=== PATIENT | male | born 1975 | race Caucasian/White ===

== ENCOUNTER 2019-04-01 15:38 | Outpatient (CLI) | payer MEDICAID, SELFPAY ==
[2019-04-01 19:32] LABS: HCT 44.5 % (40.0-50.0); HGB 15.6 g/dL (13.5-17.5); Mean Corp. HGB Concentration 35.1 g/dL (32.0-36.0); Mean Corpuscular Hemoglobin 29.2 pg (27.0-33.0); Mean Corpuscular Volume 83.2 fL (80-95); Mean Platelet Volume 9.6 fL (8.0-11.0); Platelet Count 296 x1000/uL (130-400); RBC 5.35 m/cumm (4.50-6.00); White Blood Cell Count 7.11 k/cumm (4.4-10.8)
[2019-04-01 19:43] LABS: ALT 31 U/L (16-63); AST 20 U/L (15-37); Albumin 4.3 g/dL (3.4-5.0); Alkaline Phosphatase 62 U/L (46-116); Anion Gap 9.2 mmol/L (3-11); BUN 13 mg/dL (7-18); Bilirubin, Total 0.8 mg/dL (0.2-1.0); CO2 28.8 mmol/L (21.0-32.0); CREATININE 1.19 mg/dL (0.70-1.30); Calcium 8.9 mg/dL (8.5-10.1); Chloride 104 mmol/L (98-107); Glucose 88 mg/dL (74-106); Sodium 142 mmol/L (136-145); Total Protein 7.3 g/dL (6.4-8.2)
== END 2019-04-01 15:58 ==
PROVIDERS: PCP Family Medicine; Visit Provider Family Medicine
DX: F10.10 Alcohol abuse, uncomplicated (principal); I10 Essential (primary) hypertension
CPT/HCPCS: 80053; 85027

== ENCOUNTER 2019-05-12 14:13 | Emergency (ER) | payer MEDICAID, SELFPAY ==
--- NOTE | 2019-05-12 | DI.CT_ITS ---
EXAM: CT LOWER EXTREMITY RT WO TECHNIQUE: Imaging Protocol: Axial computed tomography images with coronal and sagittal reformatted images were created and reviewed COMPARISON: XR ANKLE RT COMPLETE from 05/12/2019 FINDINGS: There is a comminuted fracture of the distal fibula. There is mild lateral displacement of the dista l fracture. There is a comminuted fracture of the distal tibia in the paracoronal plane. The fracture involves t he posterior malleolus, which is posteriorly displaced. The fracture extends medially to involve the medial malleolus. Fracture extends into the ankle joint. There is mild posterior dislocation of th e talus relative to the tibia. There is a joint effusion. There is edema seen in the soft tissue surrounding the ankle and hindfoot. IMPRESSION: Fractures involving the distal tibia and fibula as described. There is a mildly dislocated trimalleo lar fracture of the right ankle. DATA REPOSITORY: All CT scans at this facility are submitted to the National Radiology Data Registry (NRDR) Dose Index Registry (DIR) with the [employer] (A[employer]). RADIATION OPTIMIZATION: All CT scans at this facility use at least one of these dose optimization te chniques: automated exposure control; mA and/or kV adjustment per patient size (includes targeted exa ms where dose is matched to clinical indication); or iterative reconstruction.
[2019-05-12 14:26] VITALS: PULSE 58; TEMP 36.4; O2SAT 100
--- NOTE | 2019-05-12 14:29 | ED.GENADUL_ITS ---
Discharge Plan Disposition Patient Disposition: HOME Condition: Good Discharge Details Chief Complaint: Orthopedic Clinical Impression: Ankle fracture, right Primary Care Provider: Wellington Cuellar ED Provider: Pieter Merrill Home Meds and New Rx's Prescriptions: No Action Fluticasone/Salmeterol [Advair 100-50 Diskus] 1 EACH Blst.W.Dev 1 puff IN PRN PRNRF: 0 albuterol sulfate 2.5 MG/3 ML solution for nebulization 1 puff IN PRN PRNRF: 0 lisinopril 10 mg Tablet 10 mg PO DAILY RF: 0 Discharge Instructions Instructions: Ankle Fracture (ED) Additional Instructions: At this time your ankle is notably fractured. Please follow-up in the clinic with Dr. Markham or Dr. Osorio. We will place a referral for you. Please keep your foot and ankle elevated as much as possible to help the swelling. Please take 800 mg of ibuprofen every 8 hours and 1000 mg of Tylenol every 6 hours to help with the pain. Use ice as often as possible. If you notice any worsening of your symptoms, or any new symptoms such as change in color for your toes, decreased sensation, worsening pain, please loosen your splint and return immediately. If you notice any vomiting, diarrhea, fever, chills, shortness of breath, chest pain, numbness, weakness, or fainting , please return immediately to the emergency department for reevaluation. Please follow up with your primary care provider as soon as possible for reassessment and reevaluation. As always, it was a pleasure participating in your medical care today. Referrals: Alex Aguilar MD [ [facility] STAFF PHYSICIAN] - Jus Osorio MD [ [facility] STAFF PHYSICIAN] - Discharge Data Discharge Date/Time-TO BE ENTERED AT DEPARTURE: 05/12/19 16:31 Medical Decision Making 43-year-old male with no significant past medical history presents for right ankle pain. Roughly 30 minutes prior to arrival the patient was walking, slipped on the grass, and rolled his ankle. He has notable pain has not been able to bear weight since then. Pain is both medial and lateral, he denies any numbness or tingling. He denies any pain in the knee or liriano. No other complaints at this time. He has not taken any medications for this. Aside for the pain being worse with movement ambulation or bearing weight he denies any other aggravating or relieving factors. Physical exam demonstrates notable swelling over the distal medial and lateral malleoli, reduction flexion and exte nsion secondary to pain. Sensation and vascular evaluation is intact with no abnormalities. Suspect mild fracture. Will get x-ray for further assessment. Will give ice, Tylenol and Motrin at this stage. 4:20 PM X-ray reveals evidence of notable fracture of the distal tib/fib, suspicious for partially dislocated trimalar fracture of the right ankle. Did contact orthopedics and discussed the case with Dr. Osorio, who does recommend posterior splinting and then subsequent surgery. Hematoma block was placed into the patient's right ankle, mild analgesia was achieved. With the help with Dr. Osorio, the patient was mildly reduced, and a posterior splint was placed by myself. Patient tolerated this well. CT scan was ordered by Dr. Osorio, does recommend close follow-up with Dr. Markham secondary to his current schedule being totally plugged. Reassessment at time of discharge demonstrated good capillary refill, good sensation throughout, pain well controlled. Patient would like to hold off on any narcotics for home use. Will recommend continue Tylenol Motrin, nonweightbearing and close follow-up. Discussed red flags which return. I have extensively reviewed the treatment plan and discharge instructions with the patient and their family. I have addressed all patient concerns at this time. The patient and family was made aware of what symptoms to monitor for that would warrant a return to the emergency department. Discussed the plan with the patient and family, they demonstrate verbal understanding and agreement with our assessment and plan at this time. FINDINGS: There is a comminuted fracture of the distal fibula. There is mild lateral displacement of the distal fracture. There is a comminuted fracture of the distal tibia in the paracoronal plane. Th e fracture involves the posterior malleolus, which is posteriorly displaced. The fracture extends medially to involve the medial malleolus. Fracture extends into the ankle joint. There is mild posterior dislocation of the talus relative to the tibia. There is a joint effusion. There is edema seen in the soft tissue surrounding the ankle and hindfoot. IMPRESSION: Fractures involving the distal tibia and fibula as described. There is a mildly dislocated trimalleolar fracture of the right ankle. HPI General Date/Time Provider Initiated Documentation: 05/12/19 14:14 . HPI Narrative: 43-year-old male with no significant past medical history presents for right ankle pain. Roughly 30 minutes prior to arrival the patient was walking, slipped on the grass, and rolled his ankle. He has notable pain has not been able to bear weight since then. Pain is both medial and lateral, he denies any numbness or tingling. He denies any pain in the knee or liriano. No other complaints at this time. He has not taken any medications for this. Aside for the pain being worse with movement ambulation or bearing weight he denies any other aggravating or relieving factors. Related Data Home Medications Medication Instructions Recorded Confirmed Fluticasone/Salmeterol [Advair 1 puff IN PRN PRN 08/22/17 05/12/19 100-50 Diskus] albuterol sulfate 1 puff IN PRN PRN 08/22/17 05/12/19 lisinopril 10 mg PO DAILY 05/12/19 05/12/19 Allergies Allergy/AdvReac Type Severity Reaction Status Date / Time amoxicillin Allergy Unverified 05/12/19 14:31 General Stated Complaint: Orthopedic NILDA: 3 Review of Systems All systems reviewed & are unremarkable except as noted in HPI and below PFSH Social History Smoking/Tobacco Use Status: Never Alcohol Intake: current Alcohol Intake frequency: 0-2 drinks per day Alcohol type: beer Drug use: Never Substance use type: does not use Do you feel safe at home: Yes Do you feel safe in your relationship?: Yes Exam Narrative Exam Narrative: 1.Const: Well-nourished, Well-developed, appearing stated age 2.Eyes: PERRL, no conjunctival injection, and symmetrical lids. 3.ENT: Atraumatic external nose and ears. Moist MM. Neck: Symmetric, trachea midline, No thyromegaly. 4.CVS: +S1/S2, No murmurs or gallops. Peripheral pulses 2+ and equal in all extremities. Brisk capillary refill in all extremities. 5.RESP: Unlabored respiratory effort. Clear to auscultation bilaterally. No wheezes rales or rhonchi 6.GI: Soft, Nontender/Nondistended, No hepatosplenomegaly. No guarding or rebound. 7.MSK: Normocephalic, exam demonstrates slight what appears to be lateral rotation of the right ankle, mild swelling at the distal malleoli for both medial and lateral. Reproducible plated tenderness in this area. He is able to slightly flex and extend but notable pain limits him. No pain over the dorsum or plantar aspect of the foot otherwise. No pain in the mid shaft tib/fib. No knee pain whatsoever. Capillary refill is brisk, sensation intact throughout, dorsalis pedis and posterior tibial pulse +2 bilaterally. 8.Skin: Warm, Dry. No rashes or lesions. 9.Neuro: pediatric orthodontist II-XII grossly intact. Sensation grossly intact, no focal neurologic deficits. 10.Psych: (AAO) x3. Appropriate mood and affect Course Vital Signs Vital signs: Vital Signs Temperature 36.4 C L 05/12/19 14:26 Pulse 58 L 05/12/19 14:26 Pulse Oximetry 100 05/12/19 14:26 Temperature 36.4 C L 05/12/19 14:26 Temperature Source Temporal Artery Scan 05/12/19 14:26 Pulse 58 L 05/12/19 14:26 Blood Pressure Position Sitting 05/12/19 14:26 Pulse Oximetry 100 05/12/19 14:26 Oxygen Delivery Method Room Air 05/12/19 14:26 Oxygen Flow Rate 0 05/12/19 14:26 Pain Level 3 05/12/19 14:26
[2019-05-12] MEDS: Acetaminophen 500 MG TAB 1000 MG PO (14:32)
[2019-05-12] MEDS: Ibuprofen 800 MG TAB PO (14:33)
--- NOTE | 2019-05-12 14:48 | DI.RAD_ITS ---
EXAM: XR ANKLE RT COMPLETE CLINICAL HISTORY: TRAUMA, LATERALLY ROTATED, MED/LAT MAL PAIN. TECHNIQUE: 2D digital imaging was performed. COMPARISON: No exams were available for comparison FINDINGS: BONES: There is a comminuted fracture of the distal right fibula. The distal fracture is mildly disp laced laterally and posteriorly. There is a moderately displaced posterior malleolar fracture. Ther e also appears to be a fracture involving the medial aspect of the distal tibial metaphysis, possibly involving the medial malleolus. JOINTS: The talus is posteriorly dislocated relative to the distal tibia. SOFT TISSUE: Soft tissue swelling. IMPRESSION: Right ankle fracture dislocation as described above. The findings were discussed with the Emergency Department on the date of the examination. DATA REPOSITORY: RADIATION DOSE DELIVERED:
[2019-05-12 15:59] VITALS: BP 134/72; PULSE 85; RESP 15; TEMP 37.1; O2SAT 97
[2019-05-12 16:31] VITALS: BP 134/72; PULSE 85; RESP 15; TEMP 37.1; O2SAT 97
--- NOTE | 2019-05-12 17:05 | W.ORTHOCONSU ---
Date of service: 05/12/19 Time of Service: 16:05 History of Present Illness History of Present Illness Chief Complaint: Right ankle injury Narrative: Crystal is a 43-year-old otherwise healthy male who was walking on some grass today and slipped. He had a rotational injury to the right ankle and immediately felt something pop. He was unable to ambulate. He was able to get to a truck and was driven to the emergency department. He was diagnosed with a ankle fracture dislocation with notable comminution. I was consulted. He denies numbness or tingling. He does have pain about the ankle. No pain in the knee or hip. No head trauma or loss of consciousness. No break in the skin, abrasion, laceration per his report. No previous injury to this right side and no premorbid ankle pain. He denies any bone metabolic disorders. He denies diabetes, thyroid disease, or other endocrine abnormality. Consults Consult date: 05/12/19 Requesting physician: Pieter Merrill Consult Reason Right ankle fracture dislocation Assessment and Plan Assessment and plan (1) Ankle fracture, right: Status: Acute Assessment and plan: Crystal is a 43-year-old otherwise healthy male who slipped today and suffered a rotational injury to his right foot resulting in a comminuted, trimalleolar ankle fracture dislocation. A gentle reduction maneuver was performed during splinting and he was placed into a posterior slab splint. At the time of splinting he had no skin defects. However, he did have notable swelling. I discussed this with Crystal and his partner. I was very honest with both that this will take some time to recover from. It is not a simple fracture pattern and will be technically challenging and will take some time. Therefore, I would not do this tonight but rather wait to schedule this within the light of day with time to plan appropriately. The x-rays were reviewed with both. I discussed the case with Dr. Aguilar who will likely take over the care of this injury and the patient agrees with this as well. Qualifiers: Encounter type: initial encounter Fracture type: closed Qualified Code(s): S82.891A - Other fracture of right lower leg, initial encounter for closed fracture Review of Systems All systems reviewed & are unremarkable except as noted in HPI and below PFSH Medical History Asthma (Chronic) Hypertension (Chronic) Social History Smoking/Tobacco Use Status: Never Alcohol Intake: current Alcohol Intake frequency: 0-2 drinks per day Alcohol type: beer Drug use: Never Substance use type: does not use Do you feel safe at home: Yes Do you feel safe in your relationship?: Yes Exam Narrative Exam Narrative: Laying in the supine position with the right leg supported on some pillows. There is notable swelling about the right leg. The skin is wrinklable. Sensation intact light touch over the deep and superficial peroneal nerve and tibial nerve. Palpable DP pulse. Notable pain with palpation. No pain about the knee. Intact great toe extension and flexion. Results Last Vital Signs Temp 37.1 C 05/12/19 16:31 Pulse 85 05/12/19 16:31 Resp 15 05/12/19 16:31 BP 134/72 05/12/19 16:31 Pulse Ox 97 05/12/19 16:31 Imaging Imaging Studies: X-ray of the right ankle shows a comminuted trimalleolar ankle fracture with subluxation posteriorly of the talus. The posterior malleolar fragment appears to be quite large and there is notable comminution seen of the distal fibula with a vertical orientation of the medial either fragment. CT scan of the right ankle demonstrates notable comminution. The medial malleolar fragment is associate with some marginal impaction of the joint surface. The posterior malleolar component encompasses the entire posterior rim of the distal tibia, involving 20 or so percent with some marginal impaction. The distal fibula is comminuted with interposition of some of his fragments between the posterior malleolar fracture fragments and posteriorly subluxed out of the incisura. The fibular fracture extends proximally into the diaphysis of the fibula.
== END 2019-05-12 16:31 | disposition home or self-care (01) ==
PROVIDERS: Emergency Provider Student in an Organized Health Care Education/Training Program; PCP Family Medicine
DX: S82.851A Displaced trimalleolar fracture of right lower leg, initial encounter for closed fracture (principal); W01.0XXA Fall on same level from slipping, tripping and stumbling without subsequent striking against object, initial encounter; X50.9XXA Other and unspecified overexertion or strenuous movements or postures, initial encounter; I10 Essential (primary) hypertension
CPT/HCPCS: 29515; 99253; 73610; 73700

== ENCOUNTER 2019-05-14 06:37 | Day surgery (SDC) | payer MEDICAID, SELFPAY ==
[2019-05-14] VITALS (8 sets, daily range): BP systolic 134–158; BP diastolic 84–98; PULSE 63–80; RESP 16–25; TEMP 36.4–36.6; O2SAT 94–99
[2019-05-14] MEDS: Lactated Ringers 1,000 ML 100 ML IV (07:06)
--- NOTE | 2019-05-14 08:08 | DI.RAD_ITS ---
EXAM: XR FLOURO OR C-ARM <1 HR INDICATION: Closed right trimalleolar fracture. COMPARISON: XR ANKLE RT COMPLETE from 05/12/2019 TECHNIQUE: C-arm fluoroscopy and 2D digital imaging was performed. FINDINGS: Fluoroscopy was provided in the OR. Hard copy images show improvement in the alignment of the trima lleolar fracture and placement of a cast. Please see procedure note for details. DATA REPOSITORY: RADIATION DOSE DELIVERED:
--- NOTE | 2019-05-14 08:29 | PDOC.DSDIS_ITS ---
Discharge Plan Disposition Patient Disposition: HOME Condition: Stable Discharge Details Reason For Visit: CLOSED REDUCTION Attending Provider: Alex Aguilar Primary Care Provider: Wellington Cuellar Home Meds and New Rx's Prescriptions: New oxycodone 5 mg tablet 5 - 10 mg PO Q4H PRN (Reason: moderate to severe pain) Qty: 5 RF: 0 Continued nicotine (polacrilex) [Nicorette] 4 mg gum 4 mg BC Q2H RF: 0 hydrocodone-acetaminophen 5-325 mg Tablet 1 tab PO DIRECTED RF: 0 ibuprofen 800 mg Tablet 800 mg PO Q8H PRNRF: 0 acetaminophen [Acetaminophen Extra Strength] 500 mg Tablet 1,000 mg PO Q6H PRNRF: 0 ibuprofen [Advil] 200 MG tablet 800 mg PO BID Qty: 90 RF: 0 fluticasone propion-salmeterol [Advair Diskus] 250-50 mcg/dose Blister With Device 1 puff IN PRN PRNRF: 0 albuterol sulfate 2.5 MG/3 ML solution for nebulization 1 puff IN PRN PRNRF: 0 lisinopril 10 mg Tablet 10 mg PO DAILY RF: 0 Discharge Instructions Additional Instructions: Surgery: Right ankle dislocation closed reduction Activity: Nonweightbearing in splint at all times. Recommend elevation on pillows at or above the level of the heart to minimize swelling before the next surgery. Important to wiggle toes and bend and straighten knee every day to prevent stiffness. Prescriptions: Ibuprofen 800 mg take 1 every 12 hours with a meal as needed for moderate pain. Stop 5 days before next surgery. Oxycodone 5 mg take 1-2 every 4-6 hours as needed for severe pain You may use [id number] Tylenol (acetaminophen) as needed for mild pain. These pain medications may be taken all at once or in different combinations as needed. Also, recommend Colace (docusate) as a stool softener as surgery and pain medicine cause constipation. Dressings: Leave splint and dressing in place until follow-up. Keep clean and dry at all times. Follow-up: Saturday05/22/[address] Aguilar for trimalleolar ankle fracture open reduction internal fixation (ORIF). Please call the office during business hours with any questions or concerns. Let us know right away if you develop any redness, drainage, fevers, chest pain, or trouble breathing. Do not drink alcohol or drive for at least 24 hours after anesthesia. Referrals: Alex Aguilar MD [ [facility] STAFF PHYSICIAN] - Discharge Orders Discharge Orders: Discharge Order (Routine); Ordered 05/14/19 Ordered By: Alex Aguilar DS: Diagnosis Discharge Diagnosis (1) Ankle dislocation: Status: Acute (2) Closed right trimalleolar fracture: Status: Acute
--- NOTE | 2019-05-14 10:39 | ROE_ITS ---
Date of service: 05/14/19 Time of Service: 10:32 Operative Note Operative Note DATE OF PROCEDURE: 05/14/19 PRE-OP DIAGNOSIS: 1. Right ankle dislocation 2. Right displaced trimalleolar ankle fracture POST-OP DIAGNOSIS: same PROCEDURE: 1. Closed reduction right ankle dislocation 2. Short leg splinting right lower extremity SURGEON: Alex Aguilar MEAL MILLER: Wellington Azevedo ANESTHESIA: GETA ESTIMATED BLOOD LOSS: 0 COMPLICATIONS: None Patient was transported to: PACU Patient's condition: stable Indications: Please see complete medical record for details. Procedure Description: The patient was taken to the operating room and transferred to the operating room table. General anesthesia was induced. All bony prominences were well-padded. Preoperative antibiotics were omitted. The correct patient, procedure, and side of the procedure were all verified prior to beginning the procedure. The patient was positioned appropriately for posterior ankle dislocation reduction and splinting with his knee flexed 90 degrees. Gentle manual anterior drawer was placed on the hindfoot, the ankle was positioned in plantarflexion, and a palpable glide was felt as the talus reduced anteriorly. The toes were held and fluoroscopy was brought in which confirmed reduction. A short leg AO plaster style splint was then made and appropriately well molded and padded to ensure proper immobilization and reduction of this ankle fracture dislocation taking care to place the ankle in neutral position as plantarflexion did not seem required to maintain reduction at this time. Three-point mold was held and adjusted as needed using AP and lateral fluoroscopic guidance. Once the plaster splint was hardened final AP and lateral fluoroscopy confirmed excellent reduction. Patient woke from anesthesia complication and was transferred to recovery room in stable fashion. Prior to departing the day surgery unit, he reported signif icant improvement in his ankle pain demonstrated intact motor throughout his toes, and had significant improvement in his superficial peroneal and deep peroneal nerve paresthesias.
== END 2019-05-14 10:40 | disposition home or self-care (01) ==
PROVIDERS: PCP Family Medicine; Visit Provider Student in an Organized Health Care Education/Training Program
PROC: (CPT 27818; principal; 2019-05-14 07:30)
DX: S82.851A Displaced trimalleolar fracture of right lower leg, initial encounter for closed fracture (principal); S93.04XA Dislocation of right ankle joint, initial encounter; W19.XXXA Unspecified fall, initial encounter
CPT/HCPCS: 27818; 76000; 73610; J0131; J1100; J1885; J2001; J2250; J2405

== ENCOUNTER 2019-05-21 11:31 | Day surgery (SDC) | payer MEDICAID, SELFPAY ==
[2019-05-21] VITALS (8 sets, daily range): BP systolic 106–134; BP diastolic 54–92; PULSE 73–100; RESP 16–22; TEMP 36.5–36.7; O2SAT 95–99
[2019-05-21] MEDS: Lactated Ringers 1,000 ML 100 ML IV ×2 (12:16→17:01)
[2019-05-21] MEDS: CLINDAMYCIN 900 MG/50 ML BAG 50 MG IVPB (13:33)
--- NOTE | 2019-05-21 17:54 | DI.RAD_ITS ---
EXAM: XR ANKLE RT 2V CLINICAL HISTORY: right ankle fracture ORIF in OR COMPARISON: No exams were available for comparison FINDINGS: C-arm fluoroscopy was utilized by Dr. Aguilar during open reduction and internal fixation of tibiofibul ar fracture. Hard copies show plate and screw fixation of the distal tibia and fibula with reconstit ution of the ankle mortise. Fluoro time, 104 seconds.
--- NOTE | 2019-05-21 18:24 | W.PM.DSUDISC ---
Discharge Plan Disposition Patient Disposition: HOME Condition: Stable Discharge Details Reason For Visit: Right ankle surgery Attending Provider: Alex Aguilar Primary Care Provider: Wellington Cuellar Home Meds and New Rx's Prescriptions: New aspirin 325 mg tablet,delayed release (DR/EC) 325 mg PO BID 30 Days Qty: 60 RF: 0 oxycodone 5 mg tablet 5 - 10 mg PO Q4H PRN (Reason: moderate to severe pain) Qty: 22 RF: 0 Continued nicotine (polacrilex) [Nicorette] 4 mg gum 4 mg BC Q2H RF: 0 hydrocodone-acetaminophen 5-325 mg Tablet 1 tab PO DIRECTED RF: 0 ibuprofen 800 mg Tablet 800 mg PO Q8H PRNRF: 0 acetaminophen [Acetaminophen Extra Strength] 500 mg Tablet 1,000 mg PO Q6H PRNRF: 0 oxycodone 5 mg tablet 5 - 10 mg PO Q4H PRN (Reason: moderate to severe pain) Qty: 5 RF: 0 ibuprofen [Advil] 200 MG tablet 600 - 800 mg PO BID Qty: 90 RF: 0 fluticasone propion-salmeterol [Advair Diskus] 250-50 mcg/dose Blister With Device 1 puff IN PRN PRNRF: 0 albuterol sulfate 2.5 MG/3 ML solution for nebulization 1 puff IN PRN PRNRF: 0 lisinopril 10 mg Tablet 10 mg PO DAILY RF: 0 Discharge Instructions Additional Instructions: Surgery: Right distal tibia and fibula fracture ORIF Activity: Nonweightbearing in splint at all times. Recommend elevation to minimize swelling and pain. Wiggle toes and bend and straighten knee every day to prevent stiffness and improve circulation. A physical therapy prescription will be provided separately in the office at follow-up if needed.. Prescriptions: Aspirin 325 mg take 1 twice a day to prevent a blood clot for 30 days Ibuprofen 600 to 800 mg take every 12 hours with a meal as needed for moderate pain and swelling Oxycodone 5 mg take 1-2 every 4-6 hours as needed for severe pain You may use [id number] Tylenol (acetaminophen) as needed for mild pain. These pain medications may be taken all at once or in different combinations as needed. Also, recommend Colace (docusate) as a stool softener as surgery and pain medicine cause constipation. Dressings: Leave splint and dressing in place until follow-up. Keep clean and dry at all times. Must cover completely with cast cover if showering. Follow-up: 10-[address] Aguilar Please call the office during business hours with any questions or concerns. Let us know right away if you develop any redness, drainage, fevers, chest pain, or trouble breathing. Do not drink alcohol or drive for at least 24 hours after anesthesia. Stand Alone Forms: Nursing Discharge Form Discharge Orders Discharge Orders: Discharge Order (Routine); Ordered 05/21/19 Ordered By: Alex Aguilar DS: Diagnosis Discharge Diagnosis (1) Closed right pilon fracture: Status: Acute (2) Closed fracture of right distal fibula: Status: Acute
--- NOTE | 2019-05-21 18:48 | W.PM.OP ---
Date of service: 05/21/19 Time of Service: 18:24 Operative Note Operative Note DATE OF PROCEDURE: 05/21/19 PRE-OP DIAGNOSIS: Right trimalleolar displaced ankle fracture Right ankle dislocation POST-OP DIAGNOSIS: other Right pilon intra-articular distal tibia and fibula fractures PROCEDURE: Right pilon ORIF of both distal tibia weightbearing surface and fibula, CPT #14113 Manual stress external rotation radiographs of the ankle to assess syndesmotic stability, CPT #43386 SURGEON: Alex Aguilar SEED TESTER: Wellington Azevedo ANESTHESIA: GETA, regional and local ESTIMATED BLOOD LOSS: 15 TOURNIQUET TIME: 125 COMPLICATIONS: None Patient was transported to: PACU Patient's condition: stable Implants: Synthes 3.5 mm T plate posterior malleolus with 4x appropriately length 3.5 mm cortex screws. 3-hole 2.7 mm plate posterior medial fragment with 3x appropriately length 3.5 mm cortex screws. 8-hole 3.5 mm 1/3 tubular plate fibula with 5x appropriately length 3.5 mm cortex screws and 1x 4.0 mm cancellous screw. 1x 2.7 mm lag screw fibula. Indications: Please see complete medical record for details. Findings: Segmental distal fibula fracture and intra-articular complex posterior malleolus fracture with separate posterior-medial extension, Haraguchi type 2 Together, likely represent hyper-plantarflexion distal tibia and fibula pilon fractures Procedure Description: The patient was taken to the operating room and transferred to the operating room table. Regional and general anesthesia were induced. Patient was positioned prone. All bony prominences were well-padded. Preoperative antibiotics were administered. The right ankle was prepped and draped in the usual sterile fashion. The correct patient, procedure, and side of the procedure were all verified prior to incision. A longitudinal incision was used and blunt and sharp dissection was carried through the posterior lateral approach to the distal tibia down to bone taking care to elevate carefully, retract and protect the FHL sural nerve and posterior neurovascular bundle medially and retract protect the peroneal tendons and musculature and peroneal nerve laterally. The posterior malleolus fracture was reduced with dorsiflexion and provisionally pinned in place from posterior to anterior. Bone clamp was used to reduce and provisionally hold the posterior medial fragment. X-ray was used to confirm provisional reduction of the distal tibia fracture fragments. An appropriately sized in length T plate was slid over the wire and fixated to the distal tibia through the oblong hole. The wire was removed and the plate height was adjusted relative to the articular surface while maintaining reduction. A second screw was placed in the distal tibia metaphysis through the plate to secure rotation. Next, under fluoroscopic guidance a 2.5 mm drill was passed above the distal articular tibial surface and a central position followed by 3.5 mm drill through the portion of the fracture fragment and appropriate length 3.5 mm lag screw was inserted to achieve compression across the intra-articular segments. Lastly the most proximal hole in the T plate was drilled measured and filled with appropriate length 3.5 mm cortex screw. In order to obtain appropriate trajectory for the posterior medial distal tibia fracture fragment a posterior medial window was made between the tibialis posterior retracted anteriorly and the flexor digitorum longus and remainder of the flexor tendons and neurovascular bundle, which was retracted laterally this window was made both from the outside and in the inside out localizing it over the proximal fracture leo and shoulder of the proximal posterior medial fracture fragment. A 3 hole plate was selected, which happened to be from the 2.7 mm set. The 3.5 mm drill was placed through the posterior medial window taking care to place the drill guide down to bone retracting all appropriate tissues and create a drill hole at the axilla and the central hole of the plate was filled in the plate appropriately rotated to provide best antiglide buttress technique. Distal hole was drilled through the posterior medial window in a similar fashion and overdrilled and filled with an appropriate length 3.5 mm lag screw. The most proximal hole was drilled and filled with 3.5 mm cortex screw. Careful inspection of and fluoroscopy confirmed excellent reduction of the distal tibia fracture fragments and articular surface and appropriate hardware placement. The tourniquet was let down and moist laps were held in the wound for a few minutes. Hemostasis was appropriate. 30 cc of 0.25% bupivacaine with epinephrine was infiltrated about both wounds. Attention was then turned to the segmental comminuted distal fibula fracture. The peroneals were retracted more laterally and an elevator was used to expose the distal fibula. Care was taken to preserve the PITFL attachments which were clearly visualized and intact between the fixated posterior malleolus and the distal fibula. Clamps were used to provisionally fixate the distal fibula and length was improved using eccentric drilling through a proximal part of the plate after first placing a 3.5 mm cortex screw distally. The clamps were adjusted and the screws were loosened and tightened again to optimize reduction. Distally, there is very poor bone quality and an additional distalmost 3.5 mm cortex screw was placed and the third most distal screw was switched to a 4.0 mm cancellus after 3.5 mm cortex had minimal purchase. Proximally, 2 additional 3.5 mm cortex screws were drilled measured and placed in a similar posterior to anterior fashion. The fracture had 2 segmental components and it was felt interfragmentary compression could be improved so a 2.7 mm cortex screw was drilled and placed using lag screw technique from posterior medial to anterior lateral. Final AP, mortise, and lateral fluoroscopy confirmed excellent reduction and appropriate hardware placement of the distal fibula. Stress external rotation fluoroscopy confirmed intact ankle syndesmosis and ankle mortise. The wounds were copiously irrigated with normal saline. 1 g of vancomycin powder was distributed deeply and superficially about the wounds. Subcutaneous tissue was closed using 2-0 Monocryl in a buried interrupted fashion. The skin was closed using 3-0 nylon in horizontal mattress fashion. The extremity was cleansed with hydrogen peroxide. Incisions were covered with Xeroform, dry 4 x 4 gauze, ABD, and sterile soft roll. The extremities placed into a short leg plaster splint taking care to maintain the ankle in neutral position. The patient awoke from anesthesia without complication and was transferred to recovery room in stable fashion.
== END 2019-05-21 19:27 | disposition home or self-care (01) ==
LOC: SUR 11:59 → MS 18:59
PROVIDERS: PCP Family Medicine; Visit Provider Student in an Organized Health Care Education/Training Program
PROC: (CPT 27828; principal; 2019-05-21 07:30)
DX: S82.871A Displaced pilon fracture of right tibia, initial encounter for closed fracture (principal); S82.831A Other fracture of upper and lower end of right fibula, initial encounter for closed fracture; S93.04XA Dislocation of right ankle joint, initial encounter; W19.XXXA Unspecified fall, initial encounter; G89.18 Other acute postprocedural pain
CPT/HCPCS: 27828; 77071; C1713; 76000; 76942; 73600; J1100; J2001; J2405; J2704

== ENCOUNTER 2019-06-03 11:24 | Outpatient (CLI) | payer MEDICAID, SELFPAY ==
--- NOTE | 2019-06-03 10:45 | DI.RAD_ITS ---
EXAM: XR ANKLE RT COMPLETE CLINICAL HISTORY: Follow up TECHNIQUE: 2D digital imaging was performed. COMPARISON: XR ANKLE RT COMPLETE from 05/12/2019 XR ANKLE RT 2V from 05/21/2019 FINDINGS: There has been no change in the alignment of distal tibial and fibular hardware. The fractures show continued healing. No new abnormalities are seen.
== END 2019-06-03 11:44 ==
PROVIDERS: PCP Family Medicine; Visit Provider Student in an Organized Health Care Education/Training Program
DX: S82.871D Displaced pilon fracture of right tibia, subsequent encounter for closed fracture with routine healing (principal); S82.831D Other fracture of upper and lower end of right fibula, subsequent encounter for closed fracture with routine healing
CPT/HCPCS: 73610

== ENCOUNTER 2019-07-07 09:47 | Outpatient (CLI) | payer MEDICAID, SELFPAY ==
--- NOTE | 2019-07-07 09:30 | DI.RAD_ITS ---
EXAM: XR ANKLE RT COMPLETE CLINICAL HISTORY: f/u TECHNIQUE: 2D digital imaging was performed. COMPARISON: XR ANKLE RT COMPLETE from 06/03/2019 FINDINGS: There has been no change in the alignment of the hardware in the distal tibia and fibula. 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
== END 2019-07-07 10:07 ==
PROVIDERS: PCP Family Medicine; Visit Provider Orthopaedic Surgery
DX: S82.851D Displaced trimalleolar fracture of right lower leg, subsequent encounter for closed fracture with routine healing (principal)
CPT/HCPCS: 73610

== ENCOUNTER 2019-08-04 09:51 | Outpatient (CLI) | payer MEDICAID, SELFPAY ==
--- NOTE | 2019-08-04 09:45 | DI.RAD_ITS ---
EXAM: XR ANKLE RT COMPLETE CLINICAL HISTORY: fu fracture TECHNIQUE: COMPARISON: CR XR ANKLE RT COMPLETE from 07/07/2019 FINDINGS: Three views were obtained and show plate and screw fixation of tibiofibular fracture, no change in al ignment in comparison with previous examination July 06. Diffuse bony demineralization of the foot a nd ankle again noted. IMPRESSION:
== END 2019-08-04 10:11 ==
PROVIDERS: PCP Family Medicine; Referring Provider Family Medicine; Visit Provider Student in an Organized Health Care Education/Training Program
DX: S82.831D Other fracture of upper and lower end of right fibula, subsequent encounter for closed fracture with routine healing (principal); S82.871D Displaced pilon fracture of right tibia, subsequent encounter for closed fracture with routine healing
CPT/HCPCS: 73610

== ENCOUNTER 2019-12-08 09:51 | Outpatient (CLI) | payer MEDICAID, SELFPAY ==
--- NOTE | 2019-12-08 09:00 | DI.RAD_ITS ---
EXAM: XR ANKLE RT COMPLETE CLINICAL HISTORY: f/u fracture TECHNIQUE: COMPARISON: CR XR ANKLE RT COMPLETE from 08/04/2019 FINDINGS: Three views were obtained. Previously described tibial fibular fixation is again noted in place, the re has been no gross interval change in alignment of the tibiofibular fracture fragments comparison w ith previous examination of August 03. The ankle mortise remains well maintained. IMPRESSION: RADIATION DOSE DELIVERED: Total DLP
== END 2019-12-08 10:11 ==
PROVIDERS: PCP Family Medicine; Referring Provider Family Medicine; Visit Provider Student in an Organized Health Care Education/Training Program
DX: S82.291A Other fracture of shaft of right tibia, initial encounter for closed fracture (principal); S82.491A Other fracture of shaft of right fibula, initial encounter for closed fracture
CPT/HCPCS: 73610

== ENCOUNTER 2020-03-07 14:19 | Outpatient (REF) | payer MEDICAID, SELFPAY ==
[2020-03-08 21:32] LABS: COVID-19 RT-PCR Result NEGATIVE (Negative)
== END 2020-03-07 14:39 ==
LOC: NCHCN 14:19
PROVIDERS: PCP Family Medicine; Visit Provider Nurse Practitioner Family
DX: Z11.59 Encounter for screening for other viral diseases (principal)
CPT/HCPCS: U0003

== ENCOUNTER 2020-04-12 11:07 | Outpatient (CLI) | payer MEDICAID, SELFPAY ==
--- NOTE | 2020-04-12 10:30 | DI.RAD_ITS ---
EXAM: XR ANKLE RT COMPLETE CLINICAL HISTORY: f/u. TECHNIQUE: 2D digital imaging was performed. COMPARISON: CR XR ANKLE RT COMPLETE from 12/08/2019 FINDINGS: BONES: There are stable post operative changes present. No new fracture or dislocation. JOINTS: The joint spaces are well maintained. No joint effusion is present. SOFT TISSUE: Normal. IMPRESSION: Stable postoperative changes. DATA REPOSITORY: RADIATION DOSE DELIVERED:
== END 2020-04-12 11:08 | disposition home or self-care (01) ==
LOC: DIORS 11:07
PROVIDERS: PCP Family Medicine; Visit Provider Student in an Organized Health Care Education/Training Program
DX: S82.871D Displaced pilon fracture of right tibia, subsequent encounter for closed fracture with routine healing (principal); S82.61XD Displaced fracture of lateral malleolus of right fibula, subsequent encounter for closed fracture with routine healing
CPT/HCPCS: 73610

== ENCOUNTER 2021-05-29 16:50 | Outpatient (REF) | payer MEDICAID, SELFPAY ==
[2021-05-29 20:10] LABS: HCT 43.7 % (40.0-50.0); HGB 14.8 g/dL (13.5-17.5); MCHC 33.9 % (32.0-36.0); MCV 85.5 fL (80-95); MPV 10.2 fL (8.0-11.0); Platelet Count 265 10^3/uL (130-400); RBC 5.11 10^6/uL (4.36-5.78); RDW 12.7 % (11.8-14.1); RDW-SD 39.7 fL; WBC 9.22 10^3/uL (4.4-10.8)
[2021-05-29 20:26] LABS: ALT 35 U/L (16-63); AST 18 U/L (15-37); Alkaline Phosphatase 63 U/L (46-116); Anion Gap 8.8 mmol/L (3-11); BUN 10 mg/dL (7-18); Bilirubin, Total 0.6 mg/dL (0.2-1.0); CO2 27.2 mmol/L (21.0-32.0); CREATININE 1.2 mg/dL (0.70-1.30); Calcium 8.5 mg/dL (8.5-10.1); Chloride 106 mmol/L (98-107); Cholesterol 183 mg/dL (<200); Glucose 88 mg/dL (74-106); HDL Cholesterol 45 mg/dL (40-60); Potassium 4.3 mmol/L (3.5-5.1); Sodium 142 mmol/L (136-145); Total Protein 7.1 g/dL (6.4-8.2); Triglyceride 480 mg/dL (<150)
[2021-05-29 20:40] LABS: LDL CHOLESTEROL 91 mg/dL (<100)
== END 2021-05-29 16:51 | disposition home or self-care (01) ==
LOC: NCHCN 16:50
PROVIDERS: PCP Family Medicine; Visit Provider Family Medicine
DX: R06.02 Shortness of breath (principal); I10 Essential (primary) hypertension; F10.10 Alcohol abuse, uncomplicated
CPT/HCPCS: 80053; 80061; 83721; 85027

== ENCOUNTER → 2021-06-15 01:07 | Outpatient (CLI) | payer MEDICAID, SELFPAY ==
--- NOTE | 2021-06-15 10:36 | DI.RAD_ITS ---
Exam(s) XR CHEST 2V PA LATERAL EXAM: XR CHEST 2V PA LATERAL CLINICAL HISTORY: SOB, R06.02; NOT A PUI TECHNIQUE: 2D digital imaging was performed. COMPARISON: CR CHEST 2 VIEWS PA,LAT from 05/02/2016 FINDINGS: The heart is not enlarged. The lungs are clear and well expanded. No pleural effusion seen. Mediastin al contours appear intact. IMPRESSION: Normal chest. RADIATION DOSE DELIVERED: Total DLP
== END ==
PROVIDERS: PCP Family Medicine; Visit Provider Family Medicine
DX: R06.02 Shortness of breath (principal)
CPT/HCPCS: 71046

== ENCOUNTER 2021-06-20 02:27 | Outpatient (CLI) | payer MEDICAID, SELFPAY ==
[2021-06-20] MEDS: Albuterol HFA 18 GM 200 PUFF INH IH (14:16)
[2021-06-20] MEDS: Inhaler, Assist Device 1 EACH MC (14:17)
== END 2021-06-20 02:28 | disposition home or self-care (01) ==
LOC: RT 02:27
PROVIDERS: PCP Family Medicine; Visit Provider Family Medicine
DX: R06.02 Shortness of breath (principal); J45.40 Moderate persistent asthma, uncomplicated; Z86.16 Personal history of COVID-19; Z87.891 Personal history of nicotine dependence
CPT/HCPCS: 94060; 94726; 94729

== ENCOUNTER 2022-05-28 17:38 | Outpatient (REF) | payer MEDICAID, SELFPAY ==
[2022-05-28 18:29] LABS: Anion Gap 12.2 mmol/L (3-11); BUN 10 mg/dL (7-18); CO2 24.8 mmol/L (21.0-32.0); CREATININE 1.1 mg/dL (0.70-1.30); Calcium 8.6 mg/dL (8.5-10.1); Chloride 106 mmol/L (98-107); Estimated GFR 84.37 (mL/min/1.73m2); Glucose 120 mg/dL (74-106); Potassium 3.7 mmol/L (3.5-5.1); Sodium 143 mmol/L (136-145)
== END 2022-05-28 17:39 | disposition home or self-care (01) ==
LOC: NCHCN 17:38
PROVIDERS: PCP Family Medicine; Visit Provider Family Medicine
DX: I10 Essential (primary) hypertension (principal)
CPT/HCPCS: 80048

== ENCOUNTER 2023-05-02 06:52 | Day surgery (SDC) | payer MEDICAID, SELFPAY ==
[2023-05-02 06:58] VITALS: BP 121/88; PULSE 66; RESP 14; TEMP 36.5; O2SAT 97
[2023-05-02] MEDS: Lactated Ringers 1,000 ML 80 ML IV (07:12)
--- NOTE | 2023-05-02 07:24 | ANES.PREOP_ITS ---
General Info Date of Service Date Performed: 05/02/23 Height: 5 ft 6 in Weight: 78.1 kg Body Mass Index (BMI): 27.8 Surgical Procedure: Operation Date: 05/02/23 08:20 Proposed Procedure Side Surgeon p Colonoscopy Ivan Ponce MD Actual Procedure Side Surgeon p Colonoscopy Not Applicable Ivan Ponce MD Pre-Op Diagnosis Post-Op Diagnosis SCREENING COLONOSCOPY Meds Allergies and Home Medications Allergies Allergy/AdvReac Type Severity Reaction Status Date / Time amoxicillin Allergy Other (See Verified 05/02/23 07:08 Comment) Home Medication Medication Instructions Recorded albuterol sulfate 90 mcg/actuation 2 puff inhalation Q4H PRN 03/27/23 aerosol inhaler (ProAir HFA) budesonide-formoterol HFA 160 1 puff inhalation BID PRN 03/27/23 mcg-4.5 mcg/actuation aerosol inhaler (Symbicort) losartan 50 mg tablet 50 mg PO DAILY 03/27/23 Current Visit Medications: Current Medications Generic Name Dose Route Start Last Admin Trade Name Freq PRN Reason Stop Dose Admin Ringer's Solution 1,000 mls @ 80 mls/hr 05/02/23 06:00 05/02/23 07:12 IV 05/31/23 23:59 80 mls/hr INFUSION ROSALIA Administration IV Miscellaneous Supplies 1 each 05/02/23 06:00 Iv Access IV 05/31/23 23:59 DIRECTED ROSALIA Sodium Chloride 0 ml 05/02/23 06:00 Normal Saline Flush 10 Ml Syr IV 05/31/23 23:59 PRN PRN Sodium Chloride 0 ml 05/02/23 06:00 Normal Saline 10 Ml Vial IJ 05/31/23 23:59 DIRECTED PRN Sterile Water 0 ml 05/02/23 06:00 Water,Injection,Sterile 10 Ml Vial IJ 05/31/23 23:59 DIRECTED PRN PFSH Active Problems Active Problems: Problem Status Onset Code Low back pain M54.50 Chronic tonsillar hypertrophy J35.1 Closed fracture of right distal fibula 05/12/19 S82.831A Closed right pilon fracture 05/12/19 S82.871A Asthma J45.909 Hypertension I10 Medical History Medical History History of bloody stools Ankle dislocation (05/12/19) Closed right trimalleolar fracture (05/12/19) Hx of cardiac murmur Per. pt. stated he was told by Araseli Yates that he had a slight heart murmer, Pt. stated he came to the ER in August of 2017 for chest pain, head a stress test and an EKG and stated they all came out normal. Pt. states no recent chest pain presssure or SOB as of 05/19/19 History of tobacco use chew Surgical History Surgical History History of open reduction and internal fixation (ORIF) procedure Hx of wisdom tooth extraction Hx of hand surgery Tobacco Smoking/Tobacco Use Status: Current every day Tobacco Type: cigarettes and smokeless tobacco Smokeless tobacco user: chewing tobacco Alcohol Alcohol Intake: current Alcohol intake frequency: 3 or more drinks per day Alcohol type: beer Substance Use Substance use: Rarely Substance use type: marijuana Details: States no alcohol use yesterday or today Vital Signs and Lab Results Vital Signs Most Recent Vital Signs in EMR: Most Recent Vital Signs Temp Pulse Resp BP Pulse Ox 36.5 C 66 14 121/88 97 05/02/23 06:58 05/02/23 06:58 05/02/23 06:58 05/02/23 06:58 05/02/23 06:58 Lab Results Blood Type / Crossmatch: No Data to Display Complete Blood Count: No Data to Display Complete Metabolic Panel: No Data to Display Liver Function Panel: No Data to Display Coagulation Panel: No Data to Display Cardiac Panel: 2 No Data to Display Arterial Blood Gas: No Data to Display Venous Blood Gas: No Data to Display Pancreas Panel: No Data to Display Thyroid Panel: No Data to Display Infectious Disease: No Data to Display Blood Cultures: No Data to Display Toxicology Panel: No Data to Display Imaging and Studies Imaging and Studies Study information below may be from another EMR and interpreted by another provider. Please see original notes in EMR for more complete details. Stress Test Summary: Impressions: Normal study after maximal exercise. Summary: 1. Stress ECG conclusions: Maddox treadmill score: 10. This score predicts a low risk of cardiac events. 08/30/17 Pulmonary Function Summary: IMPRESSION Mild obstructive airways disease with significant bronchodilator response. This is associated with elevated diffusion capacity. This constellation of finding can be seen in asthma. Clinical correlation recommended. 06/26/16 Anesthesia Assessment and Plan Anesthesia History Personal History: No History of Anesthesia Complications Family History: No Family History of Anesthesia Complications Exercise Tolerance Exercise Tolerance: Metabolic Equivalents>4 Pertinent Negatives Pertinent Negatives: No Major Cardiovascular Symptoms or Complaints, No Major Pulmonary Symptoms or Complaints and No History of CVA/TIA Cardiac & Pulmonary Exam Cardiac Exam: Normal S1/S2 Heart Sounds Pulmonary Exam: Clear Bilateral Breath Sounds Cardiac and Pulmonary Comment:: Uses rescue inhaler approx 1x/week, technology applications teacher, active Implantable Cardiac Device Does patient have a Pacemaker or an ICD?: No Airway Exam Known Difficult Airway: No Mallampati Class: 3 Mouth Opening: Normal (> 3cm) Thyromental Distance: Greater than 3 cm Neck Range of Motion: Full ROM Neck Circumference: Normal Teeth Condition: Generalized Poor Dentition (nothing loose or fragile per patient) ASA Classification ASA Score: ASA 2 Emergency Case?: No NPO Status NPO Status: NPO Clears >2 hours, Solids >8 hours Anesthesia Plan Resuscitation Status: Full Code Anesthesia Technique: General Anesthesia Airway Planned: Natural Airway Monitors Used: Standard Monitors
[2023-05-02 07:31] VITALS: BMI 27.8
[2023-05-02 08:06] VITALS: BP 118/77; PULSE 72; RESP 18; TEMP 37; O2SAT 96
--- NOTE | 2023-05-02 08:20 | W.ANESPOSTOP ---
Postoperative Evaluation Date, Time and Location Date Performed: 05/02/23 Time Performed: 08:07 Patient Location: Day Surgery Unit Vital Signs Most Recent Imported Vital Signs: Most Recent Vital Signs Temp Pulse Resp BP Pulse Ox 37.0 C 72 18 118/77 96 05/02/23 08:06 05/02/23 08:06 05/02/23 08:06 05/02/23 08:06 05/02/23 08:06 Pain Score Most Recent Pain Score: Most Recent Pain Score Pain Level 0 05/02/23 08:06 Assessment Mental Status: Awake (Alert & Oriented to Patient Baseline) Airway and Respiratory Function: Patent airway with normal (patient baseline) respiratory exam Cardiovascular Function: Hemodynamically Stable Hydration Status: Adequately Hydrated Nausea & Vomiting: No Nausea or Vomiting Pain: Pt. Denies Any Pain Peripheral Nerve Block: Patient did not receive a nerve block
--- NOTE | 2023-05-02 08:22 | W.COLOREPORT ---
Date of service: 05/02/23 Time of Service: 08:22 Colonoscopy Report Procedure Description: PROCEDURES PERFORMED: 1. Colonoscopy PREOPERATIVE DIAGNOSIS: Screening colonoscopy POSTOPERATIVE DIAGNOSIS: Normal colon, grade 2 internal hemorrhoids SURGEON: Nohemi Ponce MD INDICATION FOR PROCEDURE: Patient is a 47-year-old man with no family history of colon cancer and no symptoms due for screening. FINDINGS: Grade 2 internal hemorrhoids. Normal terminal ileum. No diverticular disease. No polyps. SURVEILLANCE interval/FOLLOW-UP: 10 years SPECIMENS: None EBL: Minimal COMPLICATIONS: None QUALITY of prep: Excellent Procedure in detail: The patient gave written consent and was in agreement with the indications, the potential risks as well as the benefits of the procedure. They were taken to the endoscopy suite and laid in the left lateral decubitus position. A timeout was performed and anesthesia was administered which was tolerated well. I started the procedure. Digital rectal and visual examination was performed and grossly within normal limits. A well-lubricated flexible colonoscope was then introduced and passed without any notable difficulty all the way to the cecum identified by the ileocecal valve and the appendiceal orifice. The terminal ileum was normal. The scope was then slowly withdrawn with the above-noted findings. The patient tolerated the procedure well and was taken to the PACU in hemodynamically stable condition.
--- NOTE | 2023-05-02 08:23 | W.PM.DSUDISC ---
Date of service: 05/02/23 Time of Service: 08:23 Discharge Plan Disposition Patient Disposition: Home Condition: Good Discharge Details Attending Provider: Ivan Ponce Primary Care Provider: Wellington Cuellar Home Meds and New Rx's Prescriptions: No Action losartan 50 mg tablet 50 mg PO DAILY budesonide-formoterol [Symbicort] 160-4.5 mcg/actuation HFA aerosol inhaler 1 puff inhalation BID PRN albuterol sulfate [ProAir HFA] 90 mcg/actuation HFA aerosol inhaler 2 puff inhalation Q4H PRN Discharge Instructions Additional Instructions: FINDINGS: No polyps were found. You do have significant hemorrhoid disease which may cause symptoms on and off around your anal area. This is otherwise a benign condition. If you have symptoms which bother you in the future, hemorrhoid banding can be performed. Stand Alone Forms: Colonoscopy Post Instructions Activity:: Activity as Tolerated Diet:: As Tolerated Discharge Orders Discharge Orders: Discharge Order (Routine); Ordered 05/02/23 Ordered By: Ivan Ponce
[2023-05-02 08:35] VITALS: BP 131/86; PULSE 62; RESP 16; TEMP 36.5; O2SAT 97
== END 2023-05-02 08:41 | disposition home or self-care (01) ==
PROVIDERS: PCP Family Medicine; Visit Provider Student in an Organized Health Care Education/Training Program
PROC: 0DJD8ZZ Inspection of Lower Intestinal Tract, Via Natural or Artificial Opening Endoscopic (ICD-10-PCS; CPT 45378; principal; 2023-05-02 08:15)
DX: Z12.11 Encounter for screening for malignant neoplasm of colon (principal); J45.909 Unspecified asthma, uncomplicated; I10 Essential (primary) hypertension; K64.1 Second degree hemorrhoids
CPT/HCPCS: 45378; 00123; J2001; J2704

== ENCOUNTER 2024-02-03 15:57 | Outpatient (REF) | payer BC, SELFPAY ==
--- OUTSIDE RECORDS SUMMARY | 2024-02-03 16:00 | XMS_ITS | Clinical Summary ---
Author Organization [facility] Address [address] [place] [address] Care Team Providers Care [facility] Att[facility] Name Role Phone Unavailable Primary Care Provider Unavailabl e Social History Tobacco Use Types Packs/Day Years Used Date Smoking Tobacco: Never Assessed Interpersonal Safety Answer Date Record ed Physically Hurt Never 03/08/2020 Verbally Threaten Not on file 03/08/2020 Sex and Gender Information Value Date Recorded Sex Assigned at Not on file Legal Sex Male 18:14 EST Gender Identity Not on file Sexual Orientation Not on file Plan of Treatment Health Maintenance Due Date Last Done Comments Hepatitis C Screen 1975 Hepatitis B Vaccine (1 of 3 - 19+ 3-dose series) 10/07 COVID-19 Vaccine ( season) 2023
--- OUTSIDE RECORDS SUMMARY | 2024-02-03 16:00 | XMS_ITS | Encounter Summary ---
Author Organization [facility] Address [address] [place] [address] Care Team Providers Care It Support Analyst Name Role Phone Unavailable Primary Care Provider Unavailabl e Encounter Details Date Type Department Care Team (Late st Contact Info) Description 03/07/2020 Lab Requisition [facility] Pathology & Laboratory Medicine - [facility] [address] [place] [address] Outr Resulting Lab, Provider Social History Tobacco Use Types Packs/Day Years Used Date Smoking Tobacco: Never Assessed Interpersonal Safety Answer Date Record ed Physically Hurt Never 03/08/2020 Verbally Threaten Not on file 03/08/2020 Sex and Gender Information Value Date Recorded Sex Assigned at Not on file Legal Sex Male 18:14 EST Gender Identity Not on file Sexual Orientation Not on file documented as of this encounter Plan of Treatment Not on file documented as of this encounter Procedures Procedure Name Priority Date/Time Associated Diagnosis Comments DO NOT ORDER STANDALONE - BROAD COVID TEST Today 03/07/2020 13:22 EST COVID-19 TESTING Routine 03/07/2020 13:2 2 EST documented in this encounter Results * DO NOT ORDER STANDALONE - BROAD COVID TEST (03/07/2020 13:22 EST) COVID-19 rt-PCR Result NEGATIVE Negative 03/08/2020 19:18 EST [facility] Comment: 2019-novel Coronavirus (2019-nCoV) not detected by the qRT-PCR assay. Consider testing for other respiratory viruses or re-collecting for 2019-nCoV testing. Note: Optimum timing for peak viral levels during infections caused by 2019-nCoV have not been determined. Collection of multiple specimens from the same patient may be necessary to detect the virus. Limitations Positive results are indicative of active infection with SARS-CoV-2 but do not rule out bacterial infection or co-infection with other viruses. The agent detected may not be the definite cause of disease. In addition, detection of viral RNA may not indicate the presence of infectious virus or that SARS-CoV-2 is the causative agent for clinical symptoms. Negative results do not preclude SARS-CoV-2 infection and should not be used as the sole basis for patient management decisions. Negative results must be combined with clinical observations, patient history, and epidemiological information. False negative results may also occur if amplification inhibitors are present in the specimen or if inadequate numbers of organisms are present in the specimen. Optimum specimen types and timing for peak viral levels during infections caused by SARS-CoV-2 have not been fully determined. Collection of multiple specimens (types and time points) from the same patient may be necessary to detect the virus. The test was validated for use with upper respiratory specimens obtained via nasopharyngeal or oropharyngeal swabs in VTM, UTM, M4, M5, M6, saline, and MTM media. The performance of this test has not been established for other specimens. Specimens collected using other FDA recommended Specimen Collection Materials listed in the FDA COVID-19 [employer] communication (May 28, 2019) are processed with the caveat that they were not all validated for use with this test and the result must be interpreted in this context. Furthermore, a false negative results may occur if a specimen is improperly collected, transported or handled. If the virus mutates in the RT-PCR target region, SARS-CoV-2 may not be detected or may be detected less predictably. Inhibitors or other types of interference may produce a false negative result. An interference study evaluating the effect of common cold medications was not performed. This test is not FDA-cleared but its performance characteristics were established by our CLIA-certified, CAP-accredited, high complexity laboratory in accordance with CLIA regulations, [employer] (CAP) guidelines (May 21, 2019), and FDA guidance (May 02, 2019). This test is only for use under the Food and Drug Administration's Emergency Use Authorization. Swab ENTIRE NASOPHARYNX / Unknown 03/07/2020 13:22 EST 03/07/2020 21:13 EST us Provider Outr Resulting Lab MICROBIOLOGY - GENER AL ORDERABLES Final Result [facility] [place], [place] * COVID-19 TESTING (03/07/2020 13:22 EST) COVID-19 rt-PCR Result NEGATIVE Negative 03/08/2020 21:26 EST [facility] Comment: 2019-novel Coronavirus (2019-nCoV) not detected by the qRT-PCR assay. Consider testing for other respiratory viruses or re-collecting for 2019-nCoV testing. Note: Optimum timing for peak viral levels during infections caused by 2019-nCoV have not been determined. Collection of multiple specimens from the same patient may be necessary to detect the virus. Limitations Positive results are indicative of active infection with SARS-CoV-2 but do not rule out bacterial infection or co-infection with other viruses. The agent detected may not be the definite cause of disease. In addition, detection of viral RNA may not indicate the presence of infectious virus or that SARS-CoV-2 is the causative agent for clinical symptoms. Negative results do not preclude SARS-CoV-2 infection and should not be used as the sole basis for patient management decisions. Negative results must be combined with clinical observations, patient history, and epidemiological information. False negative results may also occur if amplification inhibitors are present in the specimen or if inadequate numbers of organisms are present in the specimen. Optimum specimen types and timing for peak viral levels during infections caused by SARS-CoV-2 have not been fully determined. Collection of multiple specimens (types and time points) from the same patient may be necessary to detect the virus. The test was validated for use with upper respiratory specimens obtained via nasopharyngeal or oropharyngeal swabs in VTM, UTM, M4, M5, M6, saline, and MTM media. The performance of this test has not been established for other specimens. Specimens collected using other FDA recommended Specimen Collection Materials listed in the FDA COVID-19 [employer] communication (May 28, 2019) are processed with the caveat that they were not all validated for use with this test and the result must be interpreted in this context. Furthermore, a false negative results may occur if a specimen is improperly collected, transported or handled. If the virus mutates in the RT-PCR target region, SARS-CoV-2 may not be detected or may be detected less predictably. Inhibitors or other types of interference may produce a false negative result. An interference study evaluating the effect of common cold medications was not performed. This test is not FDA-cleared but its performance characteristics were established by our CLIA-certified, CAP-accredited, high complexity laboratory in accordance with CLIA regulations, [employer] (CAP) guidelines (May 21, 2019), and FDA guidance (May 02, 2019). This test is only for use under the Food and Drug Administration's Emergency Use Authorization. Performing Lab [facility] 03/08/2020 21:26 EST [facility] Swab 03/07/2020 13:2 2 EST 03/07/2020 21:13 EST us Provider Outr Resulting Lab MICROBIOLOGY - GENER AL ORDERABLES Final Result [facility] [address] [place] [address] [facility] [place], [place] documented in this encounter Visit Diagnoses Not on filedocumented in this encounter
--- OUTSIDE RECORDS SUMMARY | 2024-02-03 16:00 | XMS_ITS | Referral Summary ---
Author Organization [facility] Address [address] [place] [address] Care Team Providers Care Decorator Mannequin Name Role Phone Unavailable Primary Care Provider [...] Orientation Not on file Plan of Treatment Not on file
[2024-02-03 16:31] LABS: Anion Gap 11.4 mmol/L (3-11); BUN 11 mg/dL (7-18); CO2 26.6 mmol/L (21.0-32.0); CREATININE 1.1 mg/dL (0.70-1.30); Calcium 9.2 mg/dL (8.5-10.1); Chloride 106 mmol/L (98-107); Estimated GFR 83.32 (mL/min/1.73m2); Glucose 100 mg/dL (74-106); Potassium 4.1 mmol/L (3.5-5.1); Sodium 144 mmol/L (136-145)
== END 2024-02-03 15:58 | disposition home or self-care (01) ==
LOC: NCHCN 15:57
PROVIDERS: PCP Family Medicine; Visit Provider Student in an Organized Health Care Education/Training Program
DX: I10 Essential (primary) hypertension (principal)
CPT/HCPCS: 80048

== ENCOUNTER 2024-06-11 14:25 | Outpatient (REF) | payer BC, SELFPAY ==
[2024-06-11 21:25] LABS: Abs Immature Grans 0.04 10^3/uL (0.0-0.06); Absolute Basophil Count 0.05 10^3/uL (0.0-0.2); Absolute Eosinophil Count 0.11 10^3/uL (0.0-0.7); Absolute Lymphocyte Count 2.92 10^3/uL (1.2-3.4); Absolute Monocyte Count 0.75 10^3/uL (0.1-0.8); Absolute Neutrophil Count 4.44 10^3/uL (1.2-6.7); Basophils % 0.6 %; Eosinophils % 1.3 %; HCT 43.4 % (40.0-50.0); Immature Grans % 0.5 %; Lymphocytes % 35.1 %; MCH 29.4 pg (27.0-33.0); MCHC 34.6 % (32.0-36.0); MCV 85 fL (80-95); MPV 9.7 fL (8.0-11.0); Neutrophils % 53.5 %; Platelet Count 280 10^3/uL (130-400); RDW 13.2 % (11.8-14.1); RDW-SD 41.6 fL; WBC 8.31 10^3/uL (4.4-10.8)
[2024-06-11 21:38] LABS: ALT 52 U/L (16-63); AST 26 U/L (15-37); Albumin 4.3 g/dL (3.4-5.0); Alkaline Phosphatase 65 U/L (46-116); Anion Gap 8.4 mmol/L (3-11); BUN 10 mg/dL (7-18); CO2 27.6 mmol/L (21.0-32.0); CREATININE 1.1 mg/dL (0.70-1.30); Calcium 9.5 mg/dL (8.5-10.1); Chloride 106 mmol/L (98-107); Estimated GFR 83.32 (mL/min/1.73m2); Glucose 102 mg/dL (74-106); Lipase 28 U/L (<78); Sodium 142 mmol/L (136-145); Total Protein 7.4 g/dL (6.4-8.2)
== END 2024-06-11 14:26 | disposition home or self-care (01) ==
LOC: LBN 14:25
PROVIDERS: PCP Family Medicine; Visit Provider Physician Assistant Medical
DX: J02.9 Acute pharyngitis, unspecified (principal); R10.11 Right upper quadrant pain
CPT/HCPCS: 80053; 83690; 85025; 87070